=== PATIENT | male | born 1985 | race Caucasian/White ===

== ENCOUNTER → 2019-04-26 | Outpatient (CLI) | payer BC ==
--- NOTE | 2019-04-28 08:41 | PCVCIMAG ---
APPROVED REPORT Study performed: 04/26/2019 10:48:03 Exam: Stress Echocardiogram Indication: Chest pain , Dyspnea , Hyperlipidemia Patient Location: Echo lab Stress Nurse: Saige Pulido RN Room #: 2 Status: routine Ht: 5 ft 8 in HR: 71 bpm BP: 140/90 mmHg Rhythm: NSR Medical History Medical History: Hyperlipidemia Cardiac Risk Factors: Hyperlipidemia Previous Cardiac Procedures: none Pretest Chest Pain Characteristics: No chest pain Exercise History: Physically active Procedure The patient underwent an Exercise Stress Test using the Graeme Protocol. Blood pressure, heart rate, and EKG were monitored. An Echocardiogram was performed by robotics technician in four stages in quad fashion. At peak stress, four selected images were obtained and placed side by side with resting images for comparison. Stress Test Details Stress Test: Exercise stress testing was performed using a Graeme protocol. HR Resting HR: 71 bpmMax Heart Rate (APMHR): 188 bpm Max HR Achieved: 196 bpmTarget HR (85% APMHR): 159 bpm % of APMHR: 104 Recovery HR: 116 bpm HR response to stress: Normal HR response to stress BP Resting BP: 140/90 mmHg Max BP: 158/82 mmHg Recovery BP: 142/78 mmHg BP response to stress: Blunted blood pressure response to stress. ECG Resting ECG: Sinus Rhythm, nonspecific ST-T abnormalities Stress ECG: Sinus Rhythm, nonspecific ST-T abnormalities ST Change: Horizontal ST depression Arrhythmia: None Recovery ECG: Sinus Rhythm, NSSTT changes Recovery ST Change: Horizontal ST depression Recovery Arrhythmia: None Clinical Reason for Termination: Maximal effort Stress Symptoms: Leg Fatigue Exercise duration: 9 min 53 sec Highest Stage Achieved: Stage 4: 4.2 mph at 16% grade. Exercise capacity: 12.9 METs Overall Exercise Capacity for Age: Good Scale: Active Angina Score: None No complications. Pre-Stress Echo The resting Echocardiogram showed normal left ventricular contractility with an estimated Ejection Fraction of about 55-60%. Normal wall motion in all segments on baseline images. Post-Stress Echo The stress Echocardiogram showed normal left ventricular contractility with an estimated Ejection Fraction of about 65-70%. Normal augmentation of wall motion in all segments on post stress images. Clinical No clinical or ECG evidence for ischemia. Conclusion Clinical Response: Non-ischemic Exercise Capacity: Average Stress ECG Response: Equivocal Stress Echo Images: Non-ischemic No clinical or echocardiographic evidence for ischemia. No echocardiographic evidence for exercise induced ischemia. Normal stress echocardiogram with maximal exercise stress. Normal color doppler. No stenosis or regurgitation seen in the mitral,aortic,tricuspid or pulmonic valves. <Conclusion> No clinical or echocardiographic evidence for ischemia. No echocardiographic evidence for exercise induced ischemia. Normal stress echocardiogram with maximal exercise stress. Normal color doppler. No stenosis or regurgitation seen in the mitral,aortic,tricuspid or pulmonic valves.
== END | disposition home or self-care (01) ==
LOC: PCVCIMAG 10:23
PROVIDERS: ATTEND Internal Medicine Cardiovascular Disease
DX: R07.9 Chest pain, unspecified (principal); R06.00 Dyspnea, unspecified; E78.5 Hyperlipidemia, unspecified
CPT/HCPCS: 93325; 93351